=== PATIENT | female | born 2000 | race Hispanic/Latino ===

== ENCOUNTER 2023-03-06 09:55 | Emergency (ER) | payer OTHER ==
[~2023-03-06] VITALS: Ht 157.5 cm; Wt 48.7 kg
[2023-03-06] MEDS ORDERED: KETOROLAC TROMETHAMINE 10 MG TAB PO ONE (11:40)
[2023-03-06] MEDS ORDERED: LIDO5DIS41 TD (12:12)
[2023-03-06] MEDS ORDERED: KETO10TAB PO (12:12)
[2023-03-06] MEDS ORDERED: CYCL-707 PO (12:12)
[2023-03-06 12:19] VITALS: BP 112/75
== END 2023-03-06 12:26 | disposition home or self-care (01) ==
LOC: M ED 09:55
DX: M75.41 Impingement syndrome of right shoulder (principal); Z88.8 Allergy status to other drugs, medicaments and biological substances

== ENCOUNTER → 2023-04-09 | Outpatient (CLI) | payer OTHER ==
[~2023-04-09] MED LIST: CYCL-707 PO; KETO10TAB PO; LIDO5DIS41 TD
== END ==
LOC: M RAD 15:58
PROVIDERS: ATTEND Orthopaedic Surgery Hand Surgery
DX: M25.511 Pain in right shoulder (principal)

== ENCOUNTER 2023-07-05 13:58 | Emergency (ER) | payer OTHER ==
[~2023-07-05] VITALS: Ht 157.5 cm; Wt 46.3 kg
[2023-07-05] MEDS ORDERED: IBUPROFEN 400MG TAB PO ONE (18:25)
[2023-07-05] MEDS ORDERED: IBUP200C33 PO (18:27)
[2023-07-05 18:35] VITALS: BP 112/70; TEMP 98.8; O2SAT 100
== END 2023-07-05 18:36 | disposition home or self-care (01) ==
LOC: M ED 13:58
DX: S63.502A Unspecified sprain of left wrist, initial encounter (principal); M67.432 Ganglion, left wrist; Y92.009 Unspecified place in unspecified non-institutional (private) residence as the place of occurrence of the external cause; Z88.8 Allergy status to other drugs, medicaments and biological substances

== ENCOUNTER 2023-09-04 09:04 | Emergency (ER) | payer OTHER ==
[~2023-09-04] VITALS: Ht 157.5 cm; Wt 48.8 kg
[~2023-09-04 09:04] MED LIST changes: +IBUP200C33 PO
[2023-09-04] MEDS ORDERED: METOCLOPRAMIDE INJ 10MG/2ML VIAL IV ONE (11:40)
[2023-09-04] MEDS ORDERED: KETOROLAC 30 MG/ML 1ML VIAL IV ONE (11:40)
[2023-09-04] MEDS ORDERED: NS 1,000 ML IV ONE (11:40)
[2023-09-04 12:14] LABS: BASO % 0.6 % (0.0-1.0); EOS # 0.1 10^3/uL (0.0-0.5); EOS % 0.9 % (0.0-3.0); HEMATOCRIT 38.9 % (36.0-47.0); HEMOGLOBIN 13.2 g/dl (12.0-15.5); LYMPH # 1.2 10^3/uL (1.5-5.0); LYMPH % 22.1 % (24.0-44.0); MEAN CORPUSCULAR HEMOGLOBIN 29.1 pg (27.0-33.0); MEAN CORPUSCULAR HGB CONC 33.9 g/dl (32.0-36.5); MEAN CORPUSCULAR VOLUME 85.7 fl (80.0-96.0); MONO # 0.4 10^3/uL (0.0-0.8); MONO % 7.7 % (2.0-8.0); NEUTROPHILS # 3.7 10^3/uL (1.5-8.5); NEUTROPHILS % 68.5 % (36.0-66.0); PLATELET COUNT, AUTOMATED 185 10^3/uL (150-450); RED BLOOD COUNT 4.54 10^6/uL (4.00-5.40); WHITE BLOOD COUNT 5.3 10^3/uL (4.0-10.0)
[2023-09-04 12:42] LABS: ALBUMIN 3.8 G/DL (3.2-5.2); ALKALINE PHOSPHATASE 47 U/L (46-116); ALT/SGPT < 9 U/L (7.0-40); AST/SGOT 12 U/L (<34); BILIRUBIN,TOTAL 1.2 MG/DL (0.3-1.2); BLOOD UREA NITROGEN 9 MG/DL (9-23); CARBON DIOXIDE LEVEL 27 MMOL/L (20-31); CHLORIDE LEVEL 104 MMOL/L (98-107); CREATININE FOR GFR 0.69 MG/DL (0.55-1.30); GLOMERULAR FILTRATION RATE > 60.0 (>60); GLUCOSE, FASTING 78 MG/DL (60-100); POTASSIUM SERUM 3.7 MMOL/L (3.5-5.1); SODIUM LEVEL 140 MMOL/L (136-145); TOTAL PROTEIN 6.9 G/DL (5.7-8.2)
[2023-09-04 12:44] LABS: RSV AMPLIFICATION NEGATIVE (NEGATIVE); THYROID STIMULATING HORMONE 3.318 uIU/ML (0.55-4.78)
[2023-09-04 13:40] VITALS: BP 137/74; TEMP 98.5; O2SAT 100
[2023-09-04] MEDS ORDERED: cefTRIAXone SOD 1 GM in D5W MINI-BAG PLUS 50 ML IV ONE (13:50)
[2023-09-04] MEDS ORDERED: CEFD300C42 PO (13:51)
[2023-09-04] MEDS ORDERED: ONDA4TAB6 PO (13:51)
== END 2023-09-04 14:36 | disposition home or self-care (01) ==
LOC: M ED 09:04
DX: N30.00 Acute cystitis without hematuria (principal); R51.9 Headache, unspecified; R11.2 Nausea with vomiting, unspecified; R00.1 Bradycardia, unspecified; Z88.6 Allergy status to analgesic agent; Z88.8 Allergy status to other drugs, medicaments and biological substances; Z91.048 Other nonmedicinal substance allergy status; Z79.2 Long term (current) use of antibiotics; Z79.83 Long term (current) use of bisphosphonates
CPT/HCPCS: 70450; 71045; 80053; 81001; 84443; 84702; 85025; 87088; 87186; 87631; 93005; 96361; 96374; 96375; 99284; J0696; J1885; J2765

== ENCOUNTER 2024-06-02 18:35 | Emergency (ER) | payer OTHER ==
[~2024-06-02] VITALS: Ht 157.5 cm; Wt 45.5 kg
[~2024-06-02 18:35] MED LIST changes: +CEFD1CAP9 PO; +ONDA-282 PO
[2024-06-02 18:36] VITALS: TEMP 97.8
[2024-06-02 20:19] LABS: BASO # 0.1 10^3/uL (0.0-0.2); BASO % 0.9 % (0.0-1.0); EOS % 0.3 % (0.0-3.0); HEMATOCRIT 40.8 % (36.0-47.0); HEMOGLOBIN 14.1 g/dl (12.0-15.5); LYMPH # 1.5 10^3/uL (1.5-5.0); MEAN CORPUSCULAR HEMOGLOBIN 28.9 pg (27.0-33.0); MEAN CORPUSCULAR HGB CONC 34.6 g/dl (32.0-36.5); MEAN CORPUSCULAR VOLUME 83.6 fl (80.0-96.0); MONO # 0.7 10^3/uL (0.0-0.8); MONO % 9.5 % (2.0-8.0); NEUTROPHILS # 4.7 10^3/uL (1.5-8.5); PLATELET COUNT, AUTOMATED 204 10^3/uL (150-450); RED BLOOD COUNT 4.88 10^6/uL (4.00-5.40)
[2024-06-02 20:38] LABS: LIPASE 28 U/L (12-53)
[2024-06-02 20:38] LABS: VENOUS BASE EXCESS -1.9 (-2.0-2.0); VENOUS HCO3 22.9 MMOL/L (23.0-27.0); VENOUS O2 SATURATION 73.6 % (60.0-80.0); VENOUS PARTIAL PRESSURE CO2 39.5 mmHg (38.0-50.0); VENOUS PARTIAL PRESSURE O2 38.9 mmHg (30.0-50.0); VENOUS PH 7.382 UNITS (7.330-7.430); VENOUS STANDARD HCO3 22.3 MMOL/L; VENOUS TOTAL CO2 24.2 MMOL/L (24.0-28.0)
[2024-06-02] MEDS: KETOROLAC 30 MG/ML 1ML VIAL IV ONE (20:39)
[2024-06-02] MEDS: ONDANSETRON 4MG 2ML VIAL IV ONE (20:39)
[2024-06-02 20:40] LABS: ALKALINE PHOSPHATASE 43 U/L (46-116); ALT/SGPT < 9 U/L (7.0-40); AST/SGOT < 8 U/L (<34); BILIRUBIN,DIRECT 0.5 MG/DL (<0.4); BILIRUBIN,TOTAL 1.7 MG/DL (0.3-1.2); BLOOD UREA NITROGEN 6 MG/DL (9-23); CALCIUM LEVEL 9.5 MG/DL (8.5-10.1); CARBON DIOXIDE LEVEL 25 MMOL/L (20-31); CHLORIDE LEVEL 103 MMOL/L (98-107); CREATININE FOR GFR 0.74 MG/DL (0.55-1.30); GLOMERULAR FILTRATION RATE > 60.0 (>60); GLUCOSE, FASTING 74 MG/DL (60-100); HCG, SERUM QUALITATIVE NEGATIVE (NEGATIVE); POTASSIUM SERUM 3.4 MMOL/L (3.5-5.1); SODIUM LEVEL 139 MMOL/L (136-145); TOTAL PROTEIN 7.1 G/DL (5.7-8.2)
[2024-06-02] MEDS: NS 1,000 ML IV ONE (20:40)
[2024-06-02] MEDS: LORazepam 2 MG/ML 1ML VIAL IV STA (20:40)
[2024-06-02] MEDS: GASTROGRAFIN SOLUTION 30ML PO SCH (21:49)
[2024-06-02] MEDS ORDERED: ISOVUE-370 76% 100ML VIAL As Ordered ONE (23:08)
[2024-06-03] MEDS ORDERED: ONDA-282 PO (00:36)
[2024-06-03] MEDS ORDERED: HYDR-3363 PO (00:36)
[2024-06-03 01:05] VITALS: O2SAT 96
[2024-06-03 01:15] VITALS: BP 91/66
== END 2024-06-03 01:34 | disposition home or self-care (01) ==
LOC: M ED 18:35
DX: G47.35 Congenital central alveolar hypoventilation syndrome (principal); Z88.6 Allergy status to analgesic agent; Z88.8 Allergy status to other drugs, medicaments and biological substances; Z91.018 Allergy to other foods
CPT/HCPCS: 71045; 74177; 80048; 80076; 82803; 83605; 83690; 84703; 85025; 87486; 87581; 87633; 87798; 93005; 96361; 96374; 96375; 99285; J1885; J2060; J2405; Q9963; Q9967